=== PATIENT | female | born 1955 | race Caucasian/White ===

== ENCOUNTER 2017-05-11 14:23 | Observation (INO) | payer BC, SELFPAY ==
[2017-05-11] VITALS (11 sets, daily range): BP systolic 155–226; BP diastolic 69–97; PULSE 58–100; RESP 16–17; TEMP 36.5–36.7; O2SAT 96–100; BMI 25.9; BMI 25.6
[2017-05-11 14:52] LABS: Color, Urine Yellow (Yellow); Glucose, Dipstick Normal (Normal); Ketone-Dipstick Negative (Negative); Leukocyte Esterase-Dipstick Negative /ul (Negative); Nitrite-Dipstick Negative (Negative); Occult Blood-Urine Negative /ul (Negative); Protein-Dipstick Negative (Negative); Urine Bilirubin Dipstick Negative (Negative); Urine Clarity Clear (Clear); Urine Urobilinogen Normal (Normal)
[2017-05-11 14:56] LABS: Hematocrit 39.4 % (37-47); Hemoglobin 13.4 g/dl (12.0-15.0); Mean Corpuscular Hgb 30.9 pg (27.0-32.0); Mean Platelet Vol. 9.9 fl (6.2-12.0); Platelet Count 182 K/mm3 (150-450); RBC Distribution Width CV 12.3 % (11.6-14.6); RBC Distribution Width SD 40.2 fl (35.1-43.9); Red Blood Count 4.33 M/mm3 (4.2-5.4); White Blood Count 4.5 K/mm3 (4.4-11.0)
[2017-05-11 14:57] LABS: Scan Indicated on CBC? Y/N NO
[2017-05-11 15:10] LABS: Anion Gap 4 (5-15); BUN 20 mg/dL (7-18); BUN/Creat Ratio 19.2 RATIO (10-20); Calcium,Total 9.2 mg/dL (8.5-10.1); Chloride 99 mmol/L (98-107); Creatinine, Serum 1.04 mg/dL (0.55-1.02); EST Glomerular Filtration Rate 57 mL/min (>60); Est Glom Filt Rate - Afr Amer 69 mL/min (>60); Estimated Creatinine Clearance 55.13 ml/min; Glucose 106 mg/dL (74-106); Potassium 4.2 mmol/L (3.5-5.1); Sodium Level 135 mmol/L (136-145)
--- NOTE | 2017-05-11 15:25 | ED.VISSUMM ---
- ER Visit Summary Date of Service: 05/11/17 Chief Complaint: Sent from doctor's office because of elevated blood pressure History of Present Illness: The patient is a 62 F who was sent from doctor's office because of elevated blood pressure. She has absolutely no symptoms. She denies headache, visual, ocular or auditory symptoms. She has trouble speech or swallowing. She denies chest pain or back pain. She denies shortness of breath. She denies headache, paresthesia, anesthesia was. She denies trouble walking or with balance. She states she is compliant with her diet and medication.. She has been under stress recently. Review of systems is negative otherwise. Past history of prediabetes, hypertension, hypercholesterolemia and history of melanoma Physical Examination: First 2 blood pressures are elevated with systolic of 222 and 218. Head is atraumatic normocephalic. Pupils are equal round reactive. Extraocular muscles are intact. Funduscopic exam reveals no papilledema. No hemorrhage or exudate noted. TMs are pearly white with landmarks noted. Nares patent with no drainage. Posterior pharynx without erythema or exudate. Uvula is midline. There is no dysphonia or dysphasia. Trachea is midline. There is no stridor with auscultation of the neck. Heart is regular without murmur, gallop or rub. S1 and S2 are normal. Lungs are clear to auscultation with good movement of air bilaterally. Abdomen is soft nontender no palpable pulsatile mass or abdominal bruit distal pulses in upper and lower extremity are palpable and symmetric. Patient is alert and oriented ?3. Motor is 5 over 5. Sensory is intact. DTRs are symmetric with no clonus or Babinski sign. Cranial 2 through 12 are intact. Cerebellar testing is normal. Test Results: CBC and UA are negative and specifically no proteinuria or hematuria. BUN and creatinine are 20 and 1.04 with a GFR of 54. Prior creatinine levels were 1.1-1.2. Emergency Department Course and Treatment: Blood work and UA was obtained to evaluate for endorgan injury. She states she is on clonidine 0.1 mg twice daily and labetalol 200 mg twice daily. Because her pressure remains elevated she was given 20 mg of labetalol IV push. Blood pressure at 1550 is 225/87. Will have nursing give patient clonidine 0.1 mg p.o. Blood pressure be reassessed in 1 hour. Treatment Plan: Increase clonidine from 0.1 mg twice daily to 0.1 mg 3 times a day. Blood pressure recheck in 3-5 days. Disposition: Discharged to home Impression: 1. Asymptomatic accelerated hypertension 2. History of hypercholesterolemia This note was generated with [employer] dictation software. It may contain incorrect words, spelling, and punctuation that were not noted in review of the chart prior to signing ED Disposition - Plan for ED Patient: Disposition: Home or Assisted Living Chief Complaint: Hypertension Instructions: ED Hypertension Conf Out Of Control Prescriptions: Clonidine HCl 0.1 mg PO TID #90 tab Referrals: Sulema Christensen DO [Primary Care Provider] - 3-5 Days Additional Instructions: Have blood pressure reassessed in 3-5 days. A prescription for clonidine 0.1 mg 3 times a day was written. Continue taking labetalol twice a day. Clonidine was increased to 3 times a day.
[2017-05-11] MEDS: Labetalol 100 MG/20 ML Vial 20 MG IV (15:31)
[2017-05-11] MEDS: cloNIDine HCl 0.1 MG Tablet PO ×3 (15:59→22:27)
[2017-05-11] MEDS: amLODIPine 5 MG Tablet PO (18:49)
--- NOTE | 2017-05-11 18:56 | PCM.HP.STD ---
Problem List (1) Uncontrolled hypertension Status: Acute (2) Chronic back pain Status: Chronic Qualifiers: Back pain location: back pain in unspecified location Back pain laterality: unspecified Qualified Code(s): M54.9 - Dorsalgia, unspecified; G89.29 - Other chronic pain (3) GERD (gastroesophageal reflux disease) Status: Chronic Qualifiers: Esophagitis presence: esophagitis presence not specified Qualified Code(s): K21.9 - Gastro-esophageal reflux disease without esophagitis (4) History of malignant melanoma of skin Status: Chronic (5) Hypothyroidism Status: Chronic Qualifiers: Hypothyroidism type: unspecified Qualified Code(s): E03.9 - Hypothyroidism, unspecified (6) Chronic kidney disease, stage I Status: Chronic (7) Hyperlipidemia Status: Chronic Qualifiers: Hyperlipidemia type: unspecified Qualified Code(s): E78.5 - Hyperlipidemia, unspecified (8) Anxiety Status: Chronic (9) Diabetes mellitus Status: Chronic Qualifiers: Diabetes mellitus type: type 2 Diabetes mellitus snf insulin use: without superintendent terminal use Diabetes mellitus complication status: with unspecified complications Qualified Code(s): E11.8 - Type 2 diabetes mellitus with unspecified complications (10) Hypertension Status: Chronic Qualifiers: Hypertension type: essential hypertension Qualified Code(s): I10 - Essential (primary) hypertension History of Present Illness Date of Admission: 05/11/17 Chief Complaint: Uncontrolled BP, sent per PCP The patient is a 62 y/o F w/ PMHx: Overweight, Anxiety, Hypothyroidism, HTN, HLD, CKD stage I following w/ Nephrology (baseline Cr 1.1-1.2), Fe Deficiency anemia (c-scope x 2 unremarkable), Pre-diabetes mellitus who presents to the [facility] ED on 05/11/17 per PCP recommendation/referral as at routine office visit evaluation and BP SBP 220s although patient remained asymptomatic but does note ongoing remarkable stress over the past week with several intense events ongoing at work. In the ED work-up included AF, HR 100-->60s, BP 224/97, RR 16, 96% on RA--->following treatment with catapres 0.1 mg x 2, labetalol 20 mg IV x 1 and norvasc 5 mg po x 1 over the span of 4.5 hours-->BP remained elevated 202/69, although repeat in the ED upon evaluation w/ SBP 180s, the lowest it had been since presentation, CBC unremarkable, BMP w/ Na 135, BUN/Cr 20/1.04, glucose 106, UA unremarkable. PCP contacted per ED for discharge; however, given ongoing HTN, PCP requested observation for ongoing hypertension. Past Medical History Past Medical History (Chronic Problems): Chronic Problems Chronic back pain (Chronic) GERD (gastroesophageal reflux disease) (Chronic) History of malignant melanoma of skin (Chronic) Hypothyroidism (Chronic) Chronic kidney disease, stage I (Chronic) Hyperlipidemia (Chronic) Anxiety (Chronic) Diabetes mellitus (Chronic) Hypertension (Chronic) Allergies No Known Allergies Allergy (Verified 12/16/13 11:16) Home Medications: Ambulatory Orders Medication Instructions Recorded Aspirin [Aspirin, Baby] 81 mg PO DAILY@0800 12/16/13 Calcium (Elemental) [Caltrate-600] 600 mg PO BID 12/16/13 Clonidine HCl [Catapres] 0.1 mg PO BID 12/16/13 Garlic 1,500 mg PO DAILY 12/16/13 Metformin(XR) [Glucophage Xr] 500 mg PO DAILY 12/16/13 Multivitamins,Therapeutic 1 tablet PO DAILY 12/16/13 [Multivitamin] Pravastatin [Pravachol] 40 mg PO DAILY 12/16/13 Thyroid [[place] Thyroid] 60 mg PO DAILY 12/16/13 Esomeprazole Mag Trihydrate 20 mg PO DAILY 05/11/17 [Nexium] Labetalol [Trandate (Beta Star)] 200 mg PO TID 05/11/17 Spironolactone 25 mg PO DAILY 05/11/17 Surgical History: - - x 3, BL LE vein surgery/ablation, surgery for melanoma on the left arm. 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 Denies: Chills, Fever, Weight Change HEENT: Denies: Head Aches, Sinus Congestion, Sinus Drainage Cardiovascular: Denies: Chest Pain, Palpitations Respiratory: Denies: Cough, Shortness of breath at rest, Sputum production Gastrointestinal: Denies: Abdominal Pain, Nausea, Vomiting Genitourinary: Denies: Dysuria Musculoskeletal: Denies: Joint Pain, Joint Tenderness Skin: Denies: Rash, Wounds Neurological: Denies: Numbness, Tingling, Focal weakness Psychiatric: Reports: Anxiety. Denies: Depression, Homicidal Ideations, Suicidal Ideations Hematologic/ Lymphatic: Reports: Anemia. Denies: Easy Bruising, Easy Bleeding VTE Information - Inpt Only VTE Present on Admission: No VTE Mechan Device Prophylaxis: SCD's VTE Pharm Prophylaxis ordered?: Yes Patient Problems: Active and Suspected Problems Uncontrolled hypertension (Acute) Subjective: Seated upright in the ED bed, mildly anxious appearing, otherwise NAD. Objective: Physical Examination: General: awake, alert, oriented x 3 and cooperative, seated upright in the ED bed in no apparent distress. Skin: normal color, turgor, no icterus, cyanosis. HEENT: AT/NC, EOMI, PERRLA, MMM, no carotid bruits or JVD noted. Lungs: CTA bilaterally, moderate effort, mild decrease BL bases, no rales, ronchi or wheezing. Heart: Regular rate and rhythm; no gallop, rub audible. Abdomen: soft, NTTP, ND, normal BS, no HSM. Extremities: no cyanosis, clubbing, or edema. Neurological: patient awake, alert, oriented x 3; cognitive function intact; pupils equally reactive to light and accomodation; cranial nerves II-XII grossly normal, moving all 4 extremities, no focal deficits, strength preserved. Psychiatric: affect appears normal, no acute evidence of depressive or anxiety feelings. - Physical Exam Vital Signs Temp Pulse Resp BP Pulse Ox 98.0 F 61 17 199/80 H 98 05/11/17 14:24 05/11/17 18:00 05/11/17 18:00 05/11/17 18:30 05/11/17 18:00 Oxygen Delivery Method Room Air Weight: 170 lb 6.677 oz Body Mass Index (BMI) 25.9 Laboratory Tests Past 24 Hrs 05/11/17 05/11/17 05/11/17 14:30 14:30 14:45 WBC 4.5 RBC 4.33 Hgb 13.4 Hct 39.4 MCV 91.0 MCH 30.9 MCHC 34.0 RDW 12.3 RDW Differential 40.2 Plt Count 182 MPV 9.9 Sodium 135 L Potassium 4.2 Chloride 99 Carbon Dioxide 32.0 Anion Gap 4 L BUN 20 H Creatinine 1.04 H Estim Creat Clear Calc 55.13 Est GFR (MDRD) Af Amer 69 Est GFR (MDRD) Non-Af 57 L BUN/Creatinine Ratio 19.2 Glucose 106 Calcium 9.2 Urine Color Yellow Urine Clarity Clear Urine pH 7.0 Ur Specific [place] 1.010 Urine Protein Negative Urine Glucose (UA) Normal Urine Ketones Negative Urine Occult Blood Negative Urine Nitrite Negative Urine Bilirubin Negative Urine Urobilinogen Normal Ur Leukocyte Esterase Negative Assessment/Plan Active and Suspected Problems Uncontrolled hypertension (Acute) The patient is a 62 y/o F w/ PMHx: Overweight, Anxiety, Hypothyroidism, HTN, HLD, CKD stage I following w/ Nephrology, Fe Deficiency anemia, Pre-diabetes mellitus who presents to the [facility] ED on 05/11/17 per PCP recommendation/referral as at routine office visit evaluation and BP SBP 220s although patient remained asymptomatic but does note ongoing remarkable stress over the past week with several intense events ongoing at work. (1) Uncontrolled Hypertension, Asymptomatic: Given ongoing notable hypertension, although ED BP prior to admission SBP 180s, thus improved, to be cautious will admit to PCU, maintain on telemetry, cycle cardiac enzymes, obtain mag level, obtain TSH/FT4 level, repeat EKG in AM, continue home oral HTN regimen, PRN hydralazine, closely monitor as concern for possibility of now hypotension given now slow trend down but several oral agents in the ED including notable clonidine. If BP increases again or symptomatic would consider cardene drip initiation. Patient per discussion has had renal artery assessment and this was noted to be normal. She was on ACEI prior but had worsened renal function thus this was discontinued. She has been following w/ Nephrology, Dr. Salcido for her HTN. (2) CKD stage I following w/ Nephrology (baseline Cr 1.1-1.2), (3) Hyperlipidemia: Continue home statin regimen. AM FLP. (4) Hypothyroidism: Continue home synthroid regimen, TSH and FT4 pending. (5) CKD stage I: Patient following w/ Nephrology,.admission BUN/Cr 20/1.04, baseline Cr 1.1-1.2, appears stable, trend. (6) Fe Deficiency Anemia: Maintain on home Fe supplementation, admission Hgb normal. (7) Pre-Diabetes mellitus type II: Hold oral home regimen, ADA diet, accu checks w/ ISS, HgbA1c pending. (8) DVT Prophylaxis: SCDs, lovenox. Code Visit OBSV E&M: 77519 Initial observation care L3
--- NOTE | 2017-05-11 19:19 | HP.PCM_ITS ---
Problem List (1) Uncontrolled hypertension Status: Acute (2) Chronic back pain Status: Chronic Qualifiers: Back pain location: back pain in unspecified location Back pain laterality : unspecified Qualified Code(s): M54.9 - Dorsalgia, unspecified; G89.29 - Other chronic pain (3) GERD (gastroesophageal reflux disease) Status: Chronic Qualifiers: Esophagitis presence: esophagitis presence not specified Qualified Code(s) : K21.9 - Gastro-esophageal reflux disease without esophagitis (4) History of malignant melanoma of skin Status: Chronic (5) Hypothyroidism Status: Chronic Qualifiers: Hypothyroidism type: unspecified Qualified Code(s): E03.9 - Hypothyroidism , unspecified (6) Chronic kidney disease, stage I Status: Chronic (7) Hyperlipidemia Status: Chronic Qualifiers: Hyperlipidemia type: unspecified Qualified Code(s): E78.5 - Hyperlipidemia , unspecified (8) Anxiety Status: Chronic (9) Diabetes mellitus Status: Chronic Qualifiers: Diabetes mellitus type: type 2 Diabetes mellitus terminal superintendent insulin use: without halfway use Diabetes mellitus complication status: with unspecified complications Qualified Code(s): E11.8 - Type 2 diabetes mellitus with unspecified complications (10) Hypertension Status: Chronic Qualifiers: Hypertension type: essential hypertension Qualified Code(s): I10 - Essential (primary) hypertension History of Present Illness Date of Admission: 05/11/17 Chief Complaint: Uncontrolled BP, sent per PCP The patient is a 62 y/o F w/ PMHx: Overweight, Anxiety, Hypothyroidism, HTN, HLD , CKD stage I following w/ Nephrology (baseline Cr 1.1-1.2), Fe Deficiency anemia (c-scope x 2 unremarkable), Pre-diabetes mellitus who presents to the [facility] ED on 05/11/17 per PCP recommendation/referral as at routine office visit evaluation and BP SBP 220s although patient remained asymptomatic but does note ongoing remarkable stress over the past week with several intense events ongoing at work. In the ED work-up included AF, HR 100-->60s, BP 224/97, RR 16, 96% on RA--->following treatment with catapres 0.1 mg x 2, labetalol 20 mg IV x 1 and norvasc 5 mg po x 1 over the span of 4.5 hours-->BP remained elevated 202/ 69, although repeat in the ED upon evaluation w/ SBP 180s, the lowest it had been since presentation, CBC unremarkable, BMP w/ Na 135, BUN/Cr 20/1.04, glucose 106, UA unremarkable. PCP contacted per ED for discharge; however, given ongoing HTN, PCP requested observation for ongoing hypertension. Past Medical History Past Medical History (Chronic Problems): Chronic Problems Chronic back pain (Chronic) GERD (gastroesophageal reflux disease) (Chronic) History of malignant melanoma of skin (Chronic) Hypothyroidism (Chronic) Chronic kidney disease, stage I (Chronic) Hyperlipidemia (Chronic) Anxiety (Chronic) Diabetes mellitus (Chronic) Hypertension (Chronic) Allergies No Known Allergies Allergy (Verified 12/16/13 11:16) Home Medications: Ambulatory Orders Medication Instructions Recorded Aspirin [Aspirin, Baby] 81 mg PO DAILY@0800 12/16/13 Calcium (Elemental) [Caltrate-600] 600 mg PO BID 12/16/13 Clonidine HCl [Catapres] 0.1 mg PO BID 12/16/13 Garlic 1,500 mg PO DAILY 12/16/13 Metformin(XR) [Glucophage Xr] 500 mg PO DAILY 12/16/13 Multivitamins,Therapeutic 1 tablet PO DAILY 12/16/13 [Multivitamin] Pravastatin [Pravachol] 40 mg PO DAILY 12/16/13 Thyroid [[place] Thyroid] 60 mg PO DAILY 12/16/13 Esomeprazole Mag Trihydrate 20 mg PO DAILY 05/11/17 [Nexium] Labetalol [Trandate (Beta Star)] 200 mg PO TID 05/11/17 Spironolactone 25 mg PO DAILY 05/11/17 Surgical History: - - x 3, BL LE vein surgery/ablation, surgery for melanoma on the left arm. 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 Denies: Chills, Fever, Weight Change HEENT: Denies: Head Aches, Sinus Congestion, Sinus Drainage Cardiovascular: Denies: Chest Pain, Palpitations Respiratory: Denies: Cough, Shortness of breath at rest, Sputum production Gastrointestinal: Denies: Abdominal Pain, Nausea, Vomiting Genitourinary: Denies: Dysuria Musculoskeletal: Denies: Joint Pain, Joint Tenderness Skin: Denies: Rash, Wounds Neurological: Denies: Numbness, Tingling, Focal weakness Psychiatric: Reports: Anxiety. Denies: Depression, Homicidal Ideations, Suicidal Ideations Hematologic/ Lymphatic: Reports: Anemia. Denies: Easy Bruising, Easy Bleeding VTE Information - Inpt Only VTE Present on Admission: No VTE Mechan Device Prophylaxis: SCD's VTE Pharm Prophylaxis ordered?: Yes Patient Problems: Active and Suspected Problems Uncontrolled hypertension (Acute) Subjective: Seated upright in the ED bed, mildly anxious appearing, otherwise NAD. Objective: Physical Examination: General: awake, alert, oriented x 3 and cooperative, seated upright in the ED bed in no apparent distress. Skin: normal color, turgor, no icterus, cyanosis. HEENT: AT/NC, EOMI, PERRLA, MMM, no carotid bruits or JVD noted. Lungs: CTA bilaterally, moderate effort, mild decrease BL bases, no rales, ronchi or wheezing. Heart: Regular rate and rhythm; no gallop, rub audible. Abdomen: soft, NTTP, ND, normal BS, no HSM. Extremities: no cyanosis, clubbing, or edema. Neurological: patient awake, alert, oriented x 3; cognitive function intact; pupils equally reactive to light and accomodation; cranial nerves II-XII grossly normal, moving all 4 extremities, no focal deficits, strength preserved. Psychiatric: affect appears normal, no acute evidence of depressive or anxiety feelings. - Physical Exam Vital Signs Temp Pulse Resp BP Pulse Ox 98.0 F 61 17 199/80 H 98 05/11/17 14:24 05/11/17 18:00 05/11/17 18:00 05/11/17 18:30 05/11/17 18:00 Oxygen Delivery Method Room Air Weight: 170 lb 6.677 oz Body Mass Index (BMI) 25.9 Laboratory Tests Past 24 Hrs 05/11/17 05/11/17 05/11/17 14:30 14:30 14:45 WBC 4.5 RBC 4.33 Hgb 13.4 Hct 39.4 MCV 91.0 MCH 30.9 MCHC 34.0 RDW 12.3 RDW Differential 40.2 Plt Count 182 MPV 9.9 Sodium 135 L Potassium 4.2 Chloride 99 Carbon Dioxide 32.0 Anion Gap 4 L BUN 20 H Creatinine 1.04 H Estim Creat Clear Calc 55.13 Est GFR (MDRD) Af Amer 69 Est GFR (MDRD) Non-Af 57 L BUN/Creatinine Ratio 19.2 Glucose 106 Calcium 9.2 Urine Color Yellow Urine Clarity Clear Urine pH 7.0 Ur Specific [place] 1.010 Urine Protein Negative Urine Glucose (UA) Normal Urine Ketones Negative Urine Occult Blood Negative Urine Nitrite Negative Urine Bilirubin Negative Urine Urobilinogen Normal Ur Leukocyte Esterase Negative Assessment/Plan Active and Suspected Problems Uncontrolled hypertension (Acute) The patient is a 62 y/o F w/ PMHx: Overweight, Anxiety, Hypothyroidism, HTN, HLD , CKD stage I following w/ Nephrology, Fe Deficiency anemia, Pre-diabetes mellitus who presents to the [facility] ED on 05/11/17 per PCP recommendation/referral as at routine office visit evaluation and BP SBP 220s although patient remained asymptomatic but does note ongoing remarkable stress over the past week with several intense events ongoing at work. (1) Uncontrolled Hypertension, Asymptomatic: Given ongoing notable hypertension , although ED BP prior to admission SBP 180s, thus improved, to be cautious will admit to PCU, maintain on telemetry, cycle cardiac enzymes, obtain mag level, obtain TSH/FT4 level, repeat EKG in AM, continue home oral HTN regimen, PRN hydralazine, closely monitor as concern for possibility of now hypotension given now slow trend down but several oral agents in the ED including notable clonidine. If BP increases again or symptomatic would consider cardene drip initiation. Patient per discussion has had renal artery assessment and this was noted to be normal. She was on ACEI prior but had worsened renal function thus this was discontinued. She has been following w/ Nephrology, Dr. Salcido for her HTN. (2) CKD stage I following w/ Nephrology (baseline Cr 1.1-1.2), (3) Hyperlipidemia: Continue home statin regimen. AM FLP. (4) Hypothyroidism: Continue home synthroid regimen, TSH and FT4 pending. (5) CKD stage I: Patient following w/ Nephrology,.admission BUN/Cr 20/1.04, baseline Cr 1.1-1.2, appears stable, trend. (6) Fe Deficiency Anemia: Maintain on home Fe supplementation, admission Hgb normal. (7) Pre-Diabetes mellitus type II: Hold oral home regimen, ADA diet, accu checks w/ ISS, HgbA1c pending. (8) DVT Prophylaxis: SCDs, lovenox. Code Visit OBSV E&M: 20447 Initial observation care L3
[2017-05-11 21:48] LABS: Magnesium 2.1 mg/dL (1.6-2.6); Thyroid Stim Hormone (TSH) 1.05 uIU/mL (0.358-3.74)
[2017-05-11 22:00] LABS: Hemoglobin A1c 5.6 % (4.2-6.3)
[2017-05-11] MEDS: Famotidine 20 MG Tablet PO (22:25)
[2017-05-11] MEDS: Pramipexole Di-HCl 0.25 MG Tablet PO (22:25)
[2017-05-11] MEDS: Labetalol 200 MG Tablet PO (22:27)
[2017-05-11 22:40] LABS: Bedside Glucose 111 mg/dL (70-110)
[2017-05-12] VITALS (10 sets, daily range): BP systolic 136–151; BP diastolic 79–84; PULSE 52–64; RESP 16–18; TEMP 36.4–36.7; O2SAT 96–98
[2017-05-12 05:29] LABS: Hematocrit 39.6 % (37-47); Hemoglobin 13.5 g/dl (12.0-15.0); Mean Corp Hgb Conc 34.1 g/gl (32-36); Mean Platelet Vol. 10.2 fl (6.2-12.0); Platelet Count 162 K/mm3 (150-450); RBC Distribution Width CV 12.3 % (11.6-14.6); RBC Distribution Width SD 40.1 fl (35.1-43.9); Red Blood Count 4.35 M/mm3 (4.2-5.4); Scan Indicated on CBC? Y/N NO; White Blood Count 3.9 K/mm3 (4.4-11.0)
[2017-05-12 05:52] LABS: Anion Gap 6 (5-15); BUN 18 mg/dL (7-18); BUN/Creat Ratio 18.2 RATIO (10-20); Calcium,Total 9.1 mg/dL (8.5-10.1); Chloride 101 mmol/L (98-107); Cholesterol 203 mg/dL (200); Creatinine, Serum 0.99 mg/dL (0.55-1.02); EST Glomerular Filtration Rate 60 mL/min (>60); Est Glom Filt Rate - Afr Amer 73 mL/min (>60); Estimated Creatinine Clearance 57.91 ml/min; Glucose 99 mg/dL (74-106); High Density Lipoprotein 44 mg/dL; Potassium 4.1 mmol/L (3.5-5.1); Sodium Level 137 mmol/L (136-145); Triglycerides 130 mg/dL; Very Low Density Lipoprotein 26 mg/dL (5-40)
--- NOTE | 2017-05-12 05:55 | EKG12_ITS ---
Test Reason : MORNING EKG Blood Pressure : / mmHG Vent. Rate : 055 BPM Atrial Rate : 055 BPM P-R Int : 190 ms QRS Dur : 080 ms QT Int : 444 ms P-R-T Axes : 057 020 065 degrees QTc Int : 424 ms Sinus bradycardia Otherwise normal ECG When compared with ECG of 23-DEC-2013 04:48, No significant change was found Confirmed by LÁZARO RODRÍGUEZ, IRAM ([id number]), acquisition editor SUJIT BAZZI ([id number] on 05/15/2017 1:52:01 PM Referred By: JASEN Confirmed By:IRAM SESAY MD
[2017-05-12] MEDS: Labetalol 200 MG Tablet PO ×2 (06:44→13:24)
[2017-05-12] MEDS: Thyroid 60 MG Tablet PO (06:46)
[2017-05-12 07:10] LABS: Bedside Glucose 120 mg/dL (70-110)
[2017-05-12] MEDS: Aspirin 81 MG TAB.CHEW PO (08:35)
[2017-05-12] MEDS: Enoxaparin 40 MG/0.4 ML Syringe SC (08:35)
[2017-05-12] MEDS: Famotidine 20 MG Tablet PO (08:35)
[2017-05-12] MEDS: Spironolactone 25 MG Tablet PO (08:35)
[2017-05-12] MEDS: cloNIDine HCl 0.1 MG Tablet PO (08:35)
[2017-05-12 11:31] LABS: Bedside Glucose 112 mg/dL (70-110)
--- NOTE | 2017-05-12 14:27 | PCM.DC ---
- Discharge Diagnoses Current Active Problems: Current Active and Chronic Problems Uncontrolled hypertension (Acute) You will use the following diet at home:: Cardiac Your food should be the consistency of: Regular Your liquids should be the consistency of: Regular/Thin Discharge Activity: Return to Normal Activity Instructions: ED Hypertension Conf Out Of Control Allergies/Adverse Reactions: Allergies No Known Allergies Allergy (Verified 12/16/13 11:16) Medications to take at Discharge Aspirin [Aspirin, Baby] 81 mg PO DAILY@0800 12/16/13 Calcium (Elemental) [Caltrate-600] 600 mg PO BID 12/16/13 Clonidine HCl [Catapres] 0.1 mg PO BID 12/16/13 Garlic 1,500 mg PO DAILY 12/16/13 Metformin(XR) [Glucophage Xr] 500 mg PO DAILY 12/16/13 Multivitamins,Therapeutic [Multivitamin] 1 tablet PO DAILY 12/16/13 Pravastatin [Pravachol] 40 mg PO QHS 12/16/13 Thyroid [[place] Thyroid] 60 mg PO DAILY 12/16/13 B Cmplx 4/Vit D3/C/FA/Zinc Ox [Vital-D Rx Tablet] 1 tab PO DAILY 05/11/17 Esomeprazole Mag Trihydrate [Nexium] 20 mg PO DAILY 05/11/17 Labetalol [Trandate (Beta Star)] 200 mg PO TID 05/11/17 Pramipexole Di-HCl [Mirapex] 0.25 mg pe PO DAILY 05/11/17 Spironolactone 25 mg PO DAILY 05/11/17 Primary Care Physician: Sulema Christensen DO [Primary Care Provider] - 3-5 Days Please follow up with your Primary Care Physician in: in 5 to 7 days
--- NOTE | 2017-05-12 14:29 | PCM.DC.SUM ---
Discharge Date and Diagnosis - Problem List Patient Problems: Active and Suspected Problems Uncontrolled hypertension (Acute) Date of Admission: 05/11/17 Date of Discharge: 05/12/17 - Primary Discharge Diagnosis Active and Suspected Problems Uncontrolled hypertension (Acute) - Secondary Discharge Diagnosis Chronic Problems Chronic back pain (Chronic) GERD (gastroesophageal reflux disease) (Chronic) History of malignant melanoma of skin (Chronic) Hypothyroidism (Chronic) Chronic kidney disease, stage I (Chronic) Hyperlipidemia (Chronic) Anxiety (Chronic) Diabetes mellitus (Chronic) Hypertension (Chronic) Hospital Course and Treatment Imaging Results: No imaging study. market consultant: none. Operations: None Procedures: None Summary of Care Provided: The patient is a 62 y/o F w/ PMHx: Overweight, Anxiety, Hypothyroidism, HTN, HLD, CKD stage I following w/ Nephrology, Fe Deficiency anemia, Pre-diabetes mellitus who presents to the [facility] ED on 05/11/17 per PCP recommendation/referral as at routine office visit evaluation and BP SBP 220s although patient remained asymptomatic but does note ongoing remarkable stress over the past week with several intense events ongoing at work. She was admitted to PCU with telemetry. She was kept on her usual antihypertensive medications. Although PRN medication was placed, she did not need any additional medications. Her BP was 140/82 following day, remained in the range. She was asymptomatic, had no cardiac or neurological symptoms. EKG is normal and troponin were negative. OK to discharge to home and continue current medications. Follow up closely with PCP. Discharge Diet: - - Cardiac diet. Discharge Activity: Return to Normal Activity Home Medications: Medications to take at Discharge Aspirin [Aspirin, Baby] 81 mg PO DAILY@0800 12/16/13 Calcium (Elemental) [Caltrate-600] 600 mg PO BID 12/16/13 Clonidine HCl [Catapres] 0.1 mg PO BID 12/16/13 Garlic 1,500 mg PO DAILY 12/16/13 Metformin(XR) [Glucophage Xr] 500 mg PO DAILY 12/16/13 Multivitamins,Therapeutic [Multivitamin] 1 tablet PO DAILY 12/16/13 Pravastatin [Pravachol] 40 mg PO QHS 12/16/13 Thyroid [[place] Thyroid] 60 mg PO DAILY 12/16/13 B Cmplx 4/Vit D3/C/FA/Zinc Ox [Vital-D Rx Tablet] 1 tab PO DAILY 05/11/17 Esomeprazole Mag Trihydrate [Nexium] 20 mg PO DAILY 05/11/17 Labetalol [Trandate (Beta Star)] 200 mg PO TID 05/11/17 Pramipexole Di-HCl [Mirapex] 0.25 mg pe PO DAILY 05/11/17 Spironolactone 25 mg PO DAILY 05/11/17 Primary Care Physician: Sulema Christensen DO [Primary Care Provider] - 3-5 Days Please follow up with your Primary Care Physician in: in 5 to 7 days Patient Instructions: ED Hypertension Conf Out Of Control Disposition: Home Patient Condition:: Good Medical Necessity - Tobacco Use Smoking Status: Never smoker Tobacco Use: Non-smoker Meaningful Use Info Meaningful Use Diagnoses (Choose all that apply): None applicable Code Visit OBSV E&M: 91495 Observation care discharge
--- NOTE | 2017-05-12 14:36 | DS.PCM_ITS ---
Discharge Date and Diagnosis - Problem List Patient Problems: Active and Suspected Problems Uncontrolled hypertension (Acute) Date of Admission: 05/11/17 Date of Discharge: 05/12/17 - Primary Discharge Diagnosis Active and Suspected Problems Uncontrolled hypertension (Acute) - Secondary Discharge Diagnosis Chronic Problems Chronic back pain (Chronic) GERD (gastroesophageal reflux disease) (Chronic) History of malignant melanoma of skin (Chronic) Hypothyroidism (Chronic) Chronic kidney disease, stage I (Chronic) Hyperlipidemia (Chronic) Anxiety (Chronic) Diabetes mellitus (Chronic) Hypertension (Chronic) Hospital Course and Treatment Imaging Results: No imaging study. physician practice consultant: none. Operations: None Procedures: None Summary of Care Provided: The patient is a 62 y/o F w/ PMHx: Overweight, Anxiety, Hypothyroidism, HTN, HLD , CKD stage I following w/ Nephrology, Fe Deficiency anemia, Pre-diabetes mellitus who presents to the [facility] ED on 05/11/17 per PCP recommendation/referral as at routine office visit evaluation and BP SBP 220s although patient remained asymptomatic but does note ongoing remarkable stress over the past week with several intense events ongoing at work. She was admitted to PCU with telemetry. She was kept on her usual antihypertensive medications. Although PRN medication was placed, she did not need any additional medications. Her BP was 140/82 following day, remained in the range. She was asymptomatic, had no cardiac or neurological symptoms. EKG is normal and troponin were negative. OK to discharge to home and continue current medications. Follow up closely with PCP. Discharge Diet: - - Cardiac diet. Discharge Activity: Return to Normal Activity Home Medications: Medications to take at Discharge Aspirin [Aspirin, Baby] 81 mg PO DAILY@0800 12/16/13 Calcium (Elemental) [Caltrate-600] 600 mg PO BID 12/16/13 Clonidine HCl [Catapres] 0.1 mg PO BID 12/16/13 Garlic 1,500 mg PO DAILY 12/16/13 Metformin(XR) [Glucophage Xr] 500 mg PO DAILY 12/16/13 Multivitamins,Therapeutic [Multivitamin] 1 tablet PO DAILY 12/16/13 Pravastatin [Pravachol] 40 mg PO QHS 12/16/13 Thyroid [[place] Thyroid] 60 mg PO DAILY 12/16/13 B Cmplx 4/Vit D3/C/FA/Zinc Ox [Vital-D Rx Tablet] 1 tab PO DAILY 05/11/17 Esomeprazole Mag Trihydrate [Nexium] 20 mg PO DAILY 05/11/17 Labetalol [Trandate (Beta Star)] 200 mg PO TID 05/11/17 Pramipexole Di-HCl [Mirapex] 0.25 mg pe PO DAILY 05/11/17 Spironolactone 25 mg PO DAILY 05/11/17 Primary Care Physician: Sulema Christensen DO [Primary Care Provider] - 3-5 Days Please follow up with your Primary Care Physician in: in 5 to 7 days Patient Instructions: ED Hypertension Conf Out Of Control Disposition: Home Patient Condition:: Good Medical Necessity - Tobacco Use Smoking Status: Never smoker Tobacco Use: Non-smoker Meaningful Use Info Meaningful Use Diagnoses (Choose all that apply): None applicable Code Visit OBSV E&M: 04306 Observation care discharge
== END 2017-05-12 14:27 | disposition home or self-care (01) ==
LOC: ED 18:58 → PCU 20:25
PROVIDERS: Emergency Medicine; Admitting Provider Family Medicine; Emergency Provider Emergency Medicine; Family Provider Internal Medicine; PCP Internal Medicine; Visit Provider Hospitalist
DX: E11.22 Type 2 diabetes mellitus with diabetic chronic kidney disease (principal); I12.9 Hypertensive chronic kidney disease with stage 1 through stage 4 chronic kidney disease, or unspecified chronic kidney disease; N18.1 Chronic kidney disease, stage 1; K21.9 Gastro-esophageal reflux disease without esophagitis; E78.5 Hyperlipidemia, unspecified; E03.9 Hypothyroidism, unspecified; D50.9 Iron deficiency anemia, unspecified; Z85.820 Personal history of malignant melanoma of skin; Z79.899 Other long term (current) drug therapy; Z79.82 Long term (current) use of aspirin; Z79.84 Long term (current) use of oral hypoglycemic drugs
CPT/HCPCS: 36415; 80048; 80061; 81002; 82962; 83036; 83735; 84439; 84443; 84484; 85027; 93005; 96372; 96374; 97802; 99218; 99283; A4216; G0378

== ENCOUNTER → 2017-05-31 08:54 | Outpatient (CLI) | payer BC, SELFPAY ==
--- NOTE | 2017-05-31 08:56 | BD_ITS ---
STUDY: DUAL ENERGY X-RAY ABSORPTIOMETRY / DXA REASON FOR EXAM: Female, 62 years old. The patient is postmenopausal. Loss of height of 2.5 inches. TECHNIQUE: Bone Mineral Density (BMD) measurements of lumbar spine and bilateral hips were obtained. COMPARISON: Comparison is made with prior study dated December 05, 2012. FINDINGS: Lumbar Spine (L1-L4): g/cm2 (1.063) / T-score (-0.9) / Z-score (0.7) Findings are suggestive of normal bone density with a low fracture risk. Left Femur Total: g/cm2 (0.865) / T-score (-1.1) / Z-score (0.0) Left Femoral Neck: g/cm2 (0.860) / T-score (-1.3) / Z-score (0.1) Right Femur Total: g/cm2 (0.847) / T-score (-1.3) / Z-score (-0.1) Right Femoral Neck: g/cm2 (0.843) / T-score (-1.4) / Z-score (0.0) The T-Scores on the most recent prior examination were: Lumbar Spine (L1-L4): There has been worsening of bone density since the previous examination. Left Femur Total: which represents a worsening of 2.9%. Right Femur Total: which represents a worsening of 5.5%. BD/Dexa Bone Density Study IMPRESSION: The patient is considered osteopenic as outlined below according to World Marcos Organization (WHO) criteria with a moderate fracture risk. There has been worsening of bone density since the previous examination. Reference Information: The T-score is the number of standard deviations above or below the standard which is normal for young adults at their peak bone mineral density. The World Health Organization (WHO) interprets the T-scores as follows: Above -1 Normal bone density Between -1 and -2.5 Osteopenia Equal to / or below -2.5 Osteoporosis As a practical clinical guideline, osteopenia may be graded as follows: Mild -1 through -1.5 Moderate -1.6 through -2.0 Severe -2.1 through -2.4 The Z-score is the number of standard deviations above or below age-matched controls. A Z-score of less than -1.5 would be considered abnormal. References: 1. NIH Osteoporosis and Related Bone Diseases http://www.osteo.org 2. International Society for Clinical Densitometry http://www.iscd.org 3. National Osteoporosis Foundation http://www.nof.org Electronically Signed: Asaf Villeda MD at 11:06 EDT Tel [phone], Service support ,
--- NOTE | 2017-05-31 08:56 | BI_ITS ---
MAMMOGRAPHY - BILATERAL SCREENING REASON FOR EXAM: Female, 62 years old. Routine annual screening examination. PERTINENT HISTORY: Non-contributory. TECHNIQUE: Digital bilateral breast leesa (3D mammographic acquisition) in the CC and MLO projections. 2-D mediolateral oblique (MLO) and craniocaudad (CC) views of both breasts were obtained. CAD: Full Field Digital Mammography with Computer Added Detection was performed. COMPARISON: Comparison is made with prior study dated May 26, 2016 and April 22, 2015. FINDINGS: Breast Composition: There are scattered areas of fibroglandular density. There are no dominant masses or suspicious calcifications. No other significant abnormalities are identified. There has been no significant change since the prior study. BI/SCREENING MAMM (CAD), BILAT IMPRESSION: Stable bilateral screening mammogram. Yearly follow-up mammogram recommended. (A) ASSESSMENT CATEGORY: BIRADS Category 1: Negative. A letter regarding these results will be sent to the patient by the facility within 30 days. Approximately 10% of breast cancers are not detected by mammography. A normal mammogram should not delay biopsy of a clinically suspicious abnormality. [id number] Electronically Signed: Asaf Villeda MD at 11:10 EDT Tel [phone], Service support ,
== END ==
PROVIDERS: Family Provider Internal Medicine; PCP Internal Medicine; Visit Provider Internal Medicine
DX: Z78.0 Asymptomatic menopausal state (principal); Z12.31 Encounter for screening mammogram for malignant neoplasm of breast
CPT/HCPCS: 77063; 77067; 77080

== ENCOUNTER → 2017-10-04 09:26 | Outpatient (CLI) | payer BC, SELFPAY ==
[2017-10-04 10:29] LABS: Hematocrit 39.4 % (37-47); Mean Corpuscular Hgb 30.7 pg (27.0-32.0); Mean Corpuscular Volume 92.9 fL (81-99); Mean Platelet Vol. 10.4 fl (6.2-12.0); Platelet Count 179 K/mm3 (150-450); RBC Distribution Width CV 12.1 % (11.6-14.6); RBC Distribution Width SD 40.4 fl (35.1-43.9); Red Blood Count 4.24 M/mm3 (4.2-5.4); White Blood Count 4.6 K/mm3 (4.4-11.0)
[2017-10-04 10:36] LABS: Protein, Urine (Random) < 6.0 mg/dL (<11.9)
[2017-10-04 10:49] LABS: Scan Indicated on CBC? Y/N NO
[2017-10-04 11:09] LABS: Albumin, Serum 3.8 g/dL (3.2-5.0); BUN 20 mg/dL (7-18); BUN/Creat Ratio 18.3 RATIO (10-20); Calcium,Total 8.9 mg/dL (8.5-10.1); Chloride 102 mmol/L (98-107); Creatinine, Serum 1.09 mg/dL (0.55-1.02); EST Glomerular Filtration Rate 54 mL/min (>60); Est Glom Filt Rate - Afr Amer 65 mL/min (>60); Glucose 93 mg/dL (74-106); Phosphorus 3.2 mg/dL (2.5-4.9); Potassium 4.6 mmol/L (3.5-5.1); Sodium Level 137 mmol/L (136-145)
[2017-10-04 11:16] LABS: Vitamin D,25 Hydroxy 49.2 ng/mL (29.95-100.01)
[2017-10-04 11:17] LABS: PTHIN 41.2 pg/mL (18.4-80.1)
== END ==
PROVIDERS: Family Provider Internal Medicine; PCP Internal Medicine; Visit Provider Internal Medicine Nephrology
DX: N18.2 Chronic kidney disease, stage 2 (mild) (principal); N25.81 Secondary hyperparathyroidism of renal origin; D63.1 Anemia in chronic kidney disease
CPT/HCPCS: 36415; 80069; 82306; 82570; 83970; 84156; 85027

== ENCOUNTER → 2018-06-26 | Outpatient (CLI) | payer MEDICARE, OTHER, SELFPAY ==
--- NOTE | 2018-06-26 13:27 | BI_ITS ---
MAMMOGRAPHY - BILATERAL SCREENING REASON FOR EXAM: Female, 63 years old. Routine annual screening examination. PERTINENT HISTORY: Non-contributory. TECHNIQUE: Digital bilateral breast leesa (3D mammographic acquisition) in the CC and MLO projections. 2-D mediolateral oblique (MLO) and craniocaudad (CC) views of both breasts were obtained. CAD: Full Field Digital Mammography with Computer Added Detection was performed. COMPARISON: Comparison is made with prior study dated May 31, 2017 and May 26, 2016. FINDINGS: Breast Composition: There are scattered areas of fibroglandular density. There are no dominant masses or suspicious calcifications. No other significant abnormalities are identified. There has been no significant change since the prior study. BI/SCREENING MAMM (CAD), BILAT IMPRESSION: Stable bilateral screening mammogram. Yearly follow-up mammogram recommended. (A) ASSESSMENT CATEGORY: BIRADS Category 1: Negative. A letter regarding these results will be sent to the patient by the facility within 30 days. Approximately 10% of breast cancers are not detected by mammography. A normal mammogram should not delay biopsy of a clinically suspicious abnormality. [id number] Electronically Signed: Asaf Villeda, at 15:23 EDT , Service support ,
== END | disposition home or self-care (01) ==
PROVIDERS: Family Provider Internal Medicine; PCP Internal Medicine; Referring Provider Internal Medicine; Visit Provider Internal Medicine
DX: Z12.31 Encounter for screening mammogram for malignant neoplasm of breast (principal)
CPT/HCPCS: 77063; 77067

== ENCOUNTER → 2019-09-19 09:23 | Outpatient (CLI) | payer MEDICARE, OTHER, SELFPAY ==
--- NOTE | 2019-09-19 09:26 | BD_ITS ---
STUDY: DUAL ENERGY X-RAY ABSORPTIOMETRY / DXA REASON FOR EXAM: Female, 64 years old. Age of nery- 48. Pat is 172.2# and 65.25 and quot; a loss of 2.5 and quot; per pat. Type I diabetic and takes metformin. Takes levothyroxin. Takes 1200 mg of calcium and a multi-vit. Exercises moderately. TECHNIQUE: Bone Mineral Density (BMD) measurements of lumbar spine and bilateral hips were obtained. COMPARISON: Comparison is made with prior examination dated 05/31/2017. FINDINGS: Lumbar Spine (L1-L4): g/cm2 (1.224) / T-score (0.5) / Z-score (2.1) Findings are suggestive of normal bone density with a low fracture risk. Left Femur Total: g/cm2 (0.862) / T-score (-1.2) / Z-score (0.1) Left Femoral Neck: g/cm2 (0.830) / T-score (-1.5) / Z-score (0.0) Right Femur Total: g/cm2 (0.850) / T-score (-1.3) / Z-score (0.0) Right Femoral Neck: g/cm2 (0.825) / T-score (-1.5) / Z-score (0.0) The T-Scores on the most recent prior examination were: Lumbar Spine (L1-L4): There has been improvement of bone density since the previous examination. Left Femur Total: which represents a worsening of 0.3%. Right Femur Total: which represents an improvement of 0.4%. BD/Dexa Bone Density Study IMPRESSION: The patient is considered osteopenic as outlined below according to World Marcos Organization (WHO) criteria with a low fracture risk. There has been improvement of bone density since the previous examination. Reference Information: The T-score is the number of standard deviations above or below the standard which is normal for young adults at their peak bone mineral density. The World Health Organization (WHO) interprets the T-scores as follows: Above -1 Normal bone density Between -1 and -2.5 Osteopenia Equal to / or below -2.5 Osteoporosis As a practical clinical guideline, osteopenia may be graded as follows: Mild -1 through -1.5 Moderate -1.6 through -2.0 Severe -2.1 through -2.4 The Z-score is the number of standard deviations above or below age-matched controls. A Z-score of less than -1.5 would be considered abnormal. References: 1. NIH Osteoporosis and Related Bone Diseases http://www.osteo.org 2. International Society for Clinical Densitometry http://www.iscd.org 3. National Osteoporosis Foundation http://www.nof.org Electronically Signed: Asaf Villeda, at 10:06 EDT , Service support ,
--- NOTE | 2019-09-19 09:26 | BI_ITS ---
MAMMOGRAPHY - BILATERAL SCREENING REASON FOR EXAM: Female, 64 years old. Routine annual screening examination. PERTINENT HISTORY: Non-contributory. TECHNIQUE: Digital bilateral breast davon (3D mammographic acquisition) in the CC and MLO projections. 2-D mediolateral oblique (MLO) and craniocaudad (CC) views of both breasts were obtained. CAD: Full Field Digital Mammography with Computer Added Detection was performed. COMPARISON: Comparison is made with prior study dated 06/26/2018 and 05/31/2017. FINDINGS: Breast Composition: There are scattered areas of fibroglandular density. There are no dominant masses or suspicious calcifications. No other significant abnormalities are identified. There has been no significant change since the prior study. BI/SCREEN MAMM (CAD) W/DAVON BILAT IMPRESSION: Stable bilateral screening mammogram. Yearly follow-up mammogram recommended. (A) ASSESSMENT CATEGORY: BIRADS Category 1: Negative. A letter regarding these results will be sent to the patient by the facility within 30 days. Approximately 10% of breast cancers are not detected by mammography. A normal mammogram should not delay biopsy of a clinically suspicious abnormality. [id number] Electronically Signed: Asaf Villeda, at 8:18 EDT , Service support ,
== END ==
PROVIDERS: PCP Internal Medicine; Referring Provider Internal Medicine; Visit Provider Internal Medicine
DX: Z78.0 Asymptomatic menopausal state (principal); Z12.31 Encounter for screening mammogram for malignant neoplasm of breast
CPT/HCPCS: 77063; 77067; 77080

== ENCOUNTER → 2020-11-06 06:56 | Outpatient (CLI) | payer MEDICARE, OTHER, SELFPAY ==
--- NOTE | 2020-11-06 06:59 | BI_ITS ---
MAMMOGRAPHY - BILATERAL SCREENING REASON FOR EXAM: Female, 65 years old. Routine annual screening examination. PERTINENT HISTORY: Non-contributory. TECHNIQUE: Digital bilateral breast davon (3D mammographic acquisition) in the CC and MLO projections. 2-D mediolateral oblique (MLO) and craniocaudad (CC) views of both breasts were obtained. CAD: Full Field Digital Mammography with Computer Added Detection was performed. COMPARISON: Comparison is made with prior study 09/19/2019 09/26/2018. FINDINGS: Breast Composition: There are scattered areas of fibroglandular density. There are no dominant masses or suspicious calcifications. No other significant abnormalities are identified. There has been no significant change since the prior study. BI/SCRN MAMM (CAD)W/DAVON BILAT IMPRESSION: Stable bilateral screening mammogram. Yearly follow-up mammogram recommended. (A) ASSESSMENT CATEGORY: BIRADS Category 1: Negative. A letter regarding these results will be sent to the patient by the facility within 30 days. Approximately 10% of breast cancers are not detected by mammography. A normal mammogram should not delay biopsy of a clinically suspicious abnormality. [id number] Electronically Signed: Asaf Villeda MD at 9:17 EDT , Service support ,
== END ==
PROVIDERS: PCP Internal Medicine; Referring Provider Internal Medicine; Visit Provider Internal Medicine
DX: Z12.31 Encounter for screening mammogram for malignant neoplasm of breast (principal)
CPT/HCPCS: 77063; 77067

== ENCOUNTER → 2020-12-03 14:45 | Outpatient (CLI) | payer MEDICARE, OTHER, SELFPAY ==
--- NOTE | 2020-12-03 14:48 | US_ITS ---
STUDY: ULTRASOUND BREAST - RIGHT REASON FOR EXAM: Female, 65 years old. Palpable lump in the right breast. TECHNIQUE: Axial and longitudinal images of the RIGHT breast were performed with a high resolution ultrasound transducer. # OF IMAGES: 27 COMPARISON: Comparison is made with prior mammogram dated 11/06/2020. FINDINGS: RIGHT Breast: The upper aspect of the right breast was examined by ultrasound. No sonographic abnormality is seen. US/Breast Limited Unilateral IMPRESSION: No sonographic abnormality is seen. ASSESSMENT CATEGORY: BIRADS Category 1: Negative. A letter regarding these results will be sent to the patient by the facility within 30 days. Electronically Signed: Asaf Villeda MD at 9:31 EDT , Service support ,
== END ==
PROVIDERS: PCP Internal Medicine; Referring Provider Internal Medicine; Visit Provider Internal Medicine
DX: N63.10 Unspecified lump in the right breast, unspecified quadrant (principal); R92.8 Other abnormal and inconclusive findings on diagnostic imaging of breast
CPT/HCPCS: 76642

== ENCOUNTER → 2022-06-01 | Outpatient (CLI) | payer MEDICARE, OTHER, SELFPAY ==
--- NOTE | 2022-06-01 08:29 | BI_ITS ---
MAMMOGRAPHY - BILATERAL SCREENING REASON FOR EXAM: Female, 67 years old. Routine annual screening examination. PERTINENT HISTORY: Non-contributory. TECHNIQUE: Digital bilateral breast davon (3D mammographic acquisition) in the CC and MLO projections. 2-D mediolateral oblique (MLO) and craniocaudad (CC) views of both breasts were obtained. CAD: Full Field Digital Mammography with Computer Added Detection was performed. COMPARISON: Comparison is made with prior study dated November 06, 2020 and September 19, 2019. FINDINGS: Breast Composition: There are scattered areas of fibroglandular density. There are no dominant masses or suspicious calcifications. Stable small bilateral axillary lymph nodes. No other significant abnormalities are identified. There has been no significant change since the prior study. BI/SCRN MAMM (CAD)W/DAVON BILAT IMPRESSION: Stable bilateral screening mammogram. Yearly follow-up mammogram recommended. (A) ASSESSMENT CATEGORY: BIRADS Category 2: Benign. A letter regarding these results will be sent to the patient by the facility within 30 days. Approximately 10% of breast cancers are not detected by mammography. A normal mammogram should not delay biopsy of a clinically suspicious abnormality. [id number] Electronically Signed: Asaf Villeda MD at 9:30 EDT ,
--- NOTE | 2022-06-01 08:35 | BD_ITS ---
STUDY: DUAL ENERGY X-RAY ABSORPTIOMETRY / DXA REASON FOR EXAM: Female, 67 years old. [id number] TECHNIQUE: Bone Mineral Density (BMD) measurements of lumbar spine and bilateral hips were obtained. COMPARISON: Comparison is made with prior study dated September 19, 2019. FINDINGS: Lumbar Spine (L1-L4): g/cm2 (1.146) / T-score (0.8) / Z-score (2.9) Findings are suggestive of normal bone density with a low fracture risk. Left Femur Total: g/cm2 (0.885) / T-score (-0.5) / Z-score (1.0) Left Femoral Neck: g/cm2 (0.717) / T-score (-1.2) / Z-score (0.6) Right Femur Total: g/cm2 (0.864) / T-score (-0.6) / Z-score (0.8) Right Femoral Neck: g/cm2 (0.714) / T-score (-1.2) / Z-score (0.5) The T-Scores on the most recent prior examination were: Lumbar Spine (L1-L4): There has been worsening of bone density since the previous examination. Left Femur Total: which represents an improvement of 10.6%. Right Femur Total: which represents an improvement of 9.6%. BD/Dexa Bone Density Study IMPRESSION: The patient is considered osteopenic as outlined below according to World Marcos Organization (WHO) criteria with a low fracture risk. There has been improvement of bone density since the previous examination. Reference Information: The T-score is the number of standard deviations above or below the standard which is normal for young adults at their peak bone mineral density. The World Health Organization (WHO) interprets the T-scores as follows: Above -1 Normal bone density Between -1 and -2.5 Osteopenia As a practical clinical guideline, osteopenia may be graded as follows: Mild -1 through -1.5 Moderate -1.6 through -2.0 Severe -2.1 through -2.4 The Z-score is the number of standard deviations above or below age-matched controls. A Z-score of less than -1.5 would be considered abnormal. References: 1. NIH Osteoporosis and Related Bone Diseases www osteo.org 2. International Society for Clinical Densitometry www iscd.org 3. National Osteoporosis Foundation www nof.org Electronically Signed: Asaf Villeda MD at 13:20 EDT ,
== END | disposition home or self-care (01) ==
LOC: OPBD 08:26
PROVIDERS: PCP Internal Medicine; Referring Provider Internal Medicine; Visit Provider Internal Medicine
DX: Z12.31 Encounter for screening mammogram for malignant neoplasm of breast (principal); Z78.0 Asymptomatic menopausal state
CPT/HCPCS: 77063; 77067; 77080

== ENCOUNTER → 2023-09-05 | Outpatient (CLI) | payer MEDICARE, OTHER, SELFPAY ==
--- NOTE | 2023-09-05 09:04 | BI_ITS ---
MAMMOGRAPHY - BILATERAL SCREENING REASON FOR EXAM: Female, 68 years old. Routine annual screening examination. PERTINENT HISTORY: Non-contributory. History of prior melanoma with right axillary node dissection. TECHNIQUE: Digital bilateral breast davon (3D mammographic acquisition) in the CC and MLO projections. 2-D mediolateral oblique (MLO) and craniocaudad (CC) views of both breasts were obtained. CAD: Full Field Digital Mammography with Computer Added Detection was performed. COMPARISON: Comparison is made with prior study dated June 01, 2022 and November 06, 2020. FINDINGS: Breast Composition: There are scattered areas of fibroglandular density. There are no dominant masses or suspicious calcifications. No other significant abnormalities are identified. There has been no significant change since the prior study. BI/SCRN MAMM (CAD)W/DAVON BILAT IMPRESSION: Stable bilateral screening mammogram. Yearly follow-up mammogram recommended. (A) ASSESSMENT CATEGORY: BIRADS Category 1: Negative. A letter regarding these results will be sent to the patient by the facility within 30 days. Approximately 10% of breast cancers are not detected by mammography. A normal mammogram should not delay biopsy of a clinically suspicious abnormality. [id number] Electronically Signed: Asaf Villeda MD at 9:49 EDT ,
== END | disposition home or self-care (01) ==
LOC: OPBI 09:04
PROVIDERS: PCP Internal Medicine; Referring Provider Internal Medicine; Visit Provider Internal Medicine
DX: Z12.31 Encounter for screening mammogram for malignant neoplasm of breast (principal)
CPT/HCPCS: 77063; 77067

== ENCOUNTER → 2024-09-05 | Outpatient (CLI) | payer MEDICARE, OTHER, SELFPAY ==
--- NOTE | 2024-09-05 09:48 | BD_ITS ---
PROCEDURE: DEXA BONE DENSITY STUDY 09/05/2024 REASON FOR EXAM: F, age 69 y/o . Postmenopausal. TECHNIQUE: DEXA BONE DENSITY STUDY COMPARISON: Prior study dated June 01, 2022. FINDINGS: BMD and T-SCORES Lumbar spine: 1.199 g/cm2, T-score 1.5 Levels: L1 through L4 Change from prior: Improvement of 5.7%. Left femoral neck: 0.683 g/cm2, T-score -1.5 Femoral neck comparison data not recommended for monitoring change. Left total hip: 0.937 g/cm2, T-score 0.0 Change from prior: Improvement of 5.9%. Right femoral neck: 0.660 g/cm2, T-score -1.7 Femoral neck comparison data not recommended for monitoring change. Right total hip: 0.902 g/cm2, T-score -0.3 Change from prior: Improvement of 4.5%. The World Health Organization has defined the following categories based on bone density: Normal bone density: T-score equal to or greater than -1.0 Osteopenia: T-score between -1.0 and -2.5 Osteoporosis: T-score equal to or less than -2.5 The patient does meet the pharmacological treatment recommendations for prevention of osteoporosis. BD/Dexa Bone Density Study IMPRESSION: OSTEOPENIA. Recommend follow-up as clinically warranted. Reading Location: [id number]
--- NOTE | 2024-09-05 09:48 | BI_ITS ---
EXAM: SCRN MAMM (CAD)W/DAVON BILAT DATE: 09/05/2024 CLINICAL HISTORY: F, Age 69 y/o , SCREENING TECHNIQUE: SCRN MAMM (CAD)W/DAVON BILAT COMPARISON: Prior exam(s) were compared FINDINGS: TISSUE DENSITY: The breasts are heterogeneously dense, which may obscure small masses. Bilateral Breast Mammographic Findings: No suspicious masses, calcifications or other abnormalities are identified. BI/SCRN MAMM (CAD)W/DAVON BILAT IMPRESSION: No mammographic evidence of malignancy in either breast. OVERALL FINAL ASSESSMENT BI-RADS 1: NEGATIVE. RECOMMENDATION: Routine annual follow-up in 1 Year A letter with findings and recommendations will be mailed to the patient. Reading Location: [id number]
== END | disposition home or self-care (01) ==
LOC: OPBD 09:46
PROVIDERS: PCP Internal Medicine; Referring Provider Internal Medicine; Visit Provider Internal Medicine
DX: Z12.31 Encounter for screening mammogram for malignant neoplasm of breast (principal); Z78.0 Asymptomatic menopausal state
CPT/HCPCS: 77063; 77067; 77080